=== PATIENT | female | born 1955 | race Caucasian/White ===

== ENCOUNTER 2025-06-23 05:50 | Inpatient (IN) | payer MEDICARE, OTHER, SELFPAY ==
[2025-06-02 13:45] VITALS: BMI 35.5
[2025-06-02 14:13] LABS: Hematocrit 36.0 % (37.0-47.0); Hemoglobin 11.4 g/dL (12.0-16.0); Mean Corp Hgb Conc. 31.7 g/dL (33.0-37.0); Mean Corpuscular Volume 91.8 fL (81.0-99.0); Platelet Count 218 10^3/uL (130-400); Red Cell Dist. Width 14.6 % (11.5-14.5)
[2025-06-02 14:45] LABS: ALT (SGPT) 19 U/L (0-35); AST (SGOT) 24 U/L (14-36); Albumin 4.0 g/dl (3.5-5.0); Alkaline Phosphatase 96 U/L (38-126); Blood Urea Nitrogen 15 mg/dl (7-17); Calcium 8.9 mg/dl (8.4-10.2); Carbon Dioxide 28 mmol/L (22-30); Chloride 104 mmol/L (98-107); Estimated Creatinine Clearance 51 ml/min; Glucose 137 mg/dl (70-99); Potassium 4.1 mmol/L (3.5-5.1); Sodium 137 mmol/L (135-145); Total Protein 6.5 g/dl (6.3-8.2); eGFR > 60.00
[2025-06-02 18:20] VITALS: BMI 35.5
[2025-06-03 09:39] LABS: Glycohemoglobin (HgbA1c) 6.5 % (4.0-5.9)
--- NOTE | 2025-06-07 15:12 | CM ---
CM reviewed medical records.
Demographics: lives alone, will have her sister and neighbors assist
Living situation: lives alone
Support Person Post Operatively: Sister and Neighbors
History of
VN: yes, [employer], not currently on service
SNF: History of [facility] (Patient has a bad experience and would not return)
Outpatient: Pending surgical clearance.
Has patient purchased required equipment:
PCP: confirmed
Pharmacy: [facility]
Post Operative Discharge Plan: Home with family
[2025-06-23] VITALS (15 sets, daily range): BP systolic 90–148; BP diastolic 29–62; BMI 35.5; BMI 38.5
[2025-06-23] MEDS: TYLENOL 1000 MG PO (06:38)
[2025-06-23] MEDS: NORMOSOL-R/PLASMALYTE-A 1000 IV ×2 (06:55→13:53)
--- NOTE | 2025-06-23 08:25 | W.DS.TRANS ---
DC Summary - Senior Controls Engineer
-
Discharge Instructions:
Discharge Diagnosis/Procedures R shoulder OA s/p R Reverse TSA w/ Dr Mcgill 06/23
Diet Diabetic, Carb Controlled
Additional Diets Adequate hydration, minimize opioids, and wear
TEDs stockings to prevent low blood pressure/
dizziness.
Activity As tolerated
Additional Activity Non-weightbearing right upper extremity
Driving Restrictions Not until seen by your Dr
Bathing Restrictions OK to Shower
Wound Care Leave dressing on until seen by surgeon's office
for follow-up.
Specialty Instructions Weigh Daily
Instructions:
Stand-Alone Forms: Total Shoulder Replacement D/C
Changes to Home Medications: Yes
Discharge Medications:
DC Medications w/original date entered in [employer]
allopurinol 300 mg tablet 300 mg PO HS 05/31/25
ascorbic acid (vitamin C) 250 mg tablet (Vitamin C) 250 mg PO DAILY 05/31/25
atorvastatin 40 mg tablet 40 mg PO HS 05/31/25
calcitriol 0.25 mcg capsule 0.25 mcg PO DAILY 05/31/25
cholecalciferol (vitamin D3) 25 mcg (1,000 unit) capsule (Vitamin D3) 125 mcg PO DAILY 05/31/25
dextromethorphan-guaifenesin 30 mg-600 mg tablet extended hr (Mucinex DM) 1 tab PO Q12H PRN congestion 05/31/25
dicyclomine 10 mg capsule 10 mg PO HS 05/31/25
escitalopram oxalate 10 mg tablet (Lexapro) 10 mg PO DAILY 05/31/25
ezetimibe 10 mg tablet (Zetia) 10 mg PO DAILY 05/31/25
iron polysacch cplx 150 mg iron-vit B12 25 mcg-folic acid 1 mg capsule (Poly-Iron) 1 cap PO DAILY 05/31/25
magnesium 200 mg tablet 400 mg PO MOWEFR 05/31/25
mecobalamin (vitamin B12) 1,000 mcg chewable tablet (B12 Active) 1,000 mcg PO DAILY 05/31/25
metoprolol succinate 25 mg tablet,extended release 24 hr (Toprol XL) 25 mg PO HS 05/31/25
mirabegron 50 mg tablet,extended release 24 hr (Myrbetriq) 50 mg PO HS 05/31/25
multivitamin 1 tab PO DAILY 05/31/25
Held on 06/23/25. Instructions: Resume on 07/01/25.
torsemide 10 mg tablet 10 mg PO DAILY PRN swelling/weight gain 05/31/25
mupirocin 2 % topical ointment 1 applic intranasal BID #1 tube 06/02/25
prasugrel HCl 10 mg tablet (Effient) 10 mg PO DAILY 06/06/25
Held on 06/23/25. Instructions: Resume on 06/26/25.
empagliflozin 10 mg tablet (Jardiance) 10 mg PO DAILY 06/08/25
famotidine 20 mg tablet (Pepcid) 20 mg PO HS #30 tabs 06/15/25
gabapentin 300 mg capsule 300 mg PO HS neuropathic pain/sleep #10 caps 06/15/25
ondansetron HCl 4 mg tablet 4 mg PO Q6H PRN nausea and vomiting #30 tabs 06/15/25
oxycodone 5 mg tablet 5 - 10 mg (1 - 2 x 5 mg) PO Q6H PRN moderate-severe pain #30 tabs 06/15/25
Saccharomyces boulardii 250 mg capsule (Florastor) 250 mg PO BID #1 cap 06/23/25
acetaminophen 325 mg tablet 650 mg (2 x 325 mg) PO QID #0 tabs 06/23/25
aspirin 325 mg tablet 325 mg PO DAILY Blood clot prevention/tx #1 tab 06/23/25
aspirin 81 mg tablet 81 mg PO BID Blood clot prevention/tx/heart #0 tabs 06/23/25
clindamycin HCl 300 mg capsule 300 mg PO QID Infection #20 caps 06/23/25
docusate sodium 100 mg capsule (Colace) 100 mg PO BID stool softner #1 cap 06/23/25
magnesium hydroxide 400 mg/5 mL oral suspension (Milk of Magnesia) 30 ml PO HS PRN constipation #1 mL 06/23/25
sennosides 8.6 mg tablet (Senokot) 17.2 mg (2 x 8.6 mg) PO BID laxative #2 tabs 06/23/25
Home Medication Changes
famotidine 20 mg tablet (Pepcid) 20 mg PO HS #30 tabs 06/15/25
gabapentin 300 mg capsule 300 mg PO HS neuropathic pain/sleep #10 caps 06/15/25
ondansetron HCl 4 mg tablet 4 mg PO Q6H PRN nausea and vomiting #30 tabs 06/15/25
oxycodone 5 mg tablet 5 - 10 mg (1 - 2 x 5 mg) PO Q6H PRN moderate-severe pain #30 tabs 06/15/25
Saccharomyces boulardii 250 mg capsule (Florastor) 250 mg PO BID #1 cap 06/23/25
acetaminophen 325 mg tablet 650 mg (2 x 325 mg) PO QID #0 tabs 06/23/25
aspirin 325 mg tablet 325 mg PO DAILY Blood clot prevention/tx #1 tab 06/23/25
aspirin 81 mg tablet 81 mg PO BID Blood clot prevention/tx/heart #0 tabs 06/23/25
clindamycin HCl 300 mg capsule 300 mg PO QID Infection #20 caps 06/23/25
docusate sodium 100 mg capsule (Colace) 100 mg PO BID stool softner #1 cap 06/23/25
magnesium hydroxide 400 mg/5 mL oral suspension (Milk of Magnesia) 30 ml PO HS PRN constipation #1 mL 06/23/25
sennosides 8.6 mg tablet (Senokot) 17.2 mg (2 x 8.6 mg) PO BID laxative #2 tabs 06/23/25
Pending Results: No
[2025-06-23 09:30] LABS: Glucose - Point of Care 157 mg/dl (70-99)
[2025-06-23 12:39] LABS: Glucose - Point of Care 152 mg/dl (70-99)
--- NOTE | 2025-06-23 13:41 | RESPNOTE ---
Patient ordered HS CPAP and to use own equipment. Patient states she does not have her machine, will not bring hers in and will not wear our equipment. RN aware
[2025-06-23] MEDS: DECADRON IV (13:44)
[2025-06-23] MEDS: FARXIGA 10 MG PO (13:45)
[2025-06-23] MEDS: TYLENOL 650 MG PO ×3 (13:45→21:15)
[2025-06-23] MEDS: ZETIA 10 MG PO (13:45)
[2025-06-23] MEDS: LANTUS 0.05 UNITS SC (13:49)
[2025-06-23] MEDS: NOVOLOG FLEXPEN-MODERATE RESISTANCE 1 UNITS SC (13:50)
[2025-06-23] MEDS: LEXAPRO 10 MG PO (13:56)
[2025-06-23] MEDS: MAGNESIUM OXIDE 400 MG PO (13:56)
[2025-06-23] MEDS: ANCEF 5 IV (15:46)
[2025-06-23] MEDS: ASPIRIN 325 MG PO (17:27)
[2025-06-23] MEDS: NOVOLOG FLEXPEN-MODERATE RESISTANCE 7 UNITS SC (17:33)
[2025-06-23 17:37] LABS: Glucose - Point of Care 318 mg/dl (70-99)
--- NOTE | 2025-06-23 19:51 | PTCARENOTE ---
Patient oob to chair, eating meals, voiding in bathroom with supervision. She denies pain, RUE neurovascular checks are within normal limits given she received nerve block. IVF infusing per order, NSR in 60's on monitor, right shoulder dressing
c/d/i.
[2025-06-23] MEDS: COLACE 100 MG PO (21:11)
[2025-06-23] MEDS: SENOKOT 17.2 MG PO (21:11)
[2025-06-23] MEDS: DECADRON 4 MG IV (21:23)
[2025-06-23] MEDS: BACTROBAN 2% OINTMENT 1 APPLIC NASAL (21:30)
[2025-06-23 21:37] LABS: Glucose - Point of Care 225 mg/dl (70-99)
[2025-06-23] MEDS: ROXICODONE 2.5 MG PO (21:39)
[2025-06-23] MEDS: BENTYL 10 MG PO (23:01)
[2025-06-23] MEDS: LIPITOR 40 MG PO (23:02)
[2025-06-23] MEDS: TOPROL XL 25 MG PO (23:03)
[2025-06-23] MEDS: DILAUDID 0.5 MG IV (23:04)
[2025-06-23] MEDS: ZYLOPRIM 300 MG PO (23:04)
[2025-06-24] MEDS: FLUSH (NSS) 2 FLUSH IV (01:37)
[2025-06-24] MEDS: TYLENOL 650 MG PO ×3 (01:37→13:01)
[2025-06-24] MEDS: ANCEF 5 IV (01:37)
[2025-06-24] MEDS: ROXICODONE 5 MG PO ×2 (01:58→10:45)
[2025-06-24 03:00] VITALS: BP 142/69
[2025-06-24] MEDS: TYLENOL PO (05:09)
[2025-06-24 07:00] VITALS: BP 106/64
[2025-06-24 07:36] LABS: Glucose - Point of Care 210 mg/dl (70-99)
[2025-06-24] MEDS: NOVOLOG FLEXPEN-MODERATE RESISTANCE 3 UNITS SC (08:29)
[2025-06-24] MEDS: BACTROBAN 2% OINTMENT 1 APPLIC NASAL (08:29)
[2025-06-24] MEDS: DECADRON IV ×2 (08:29→10:50)
[2025-06-24] MEDS: FARXIGA 10 MG PO (08:31)
[2025-06-24] MEDS: ZETIA 10 MG PO (08:31)
[2025-06-24] MEDS: ASPIRIN 325 MG PO (08:31)
[2025-06-24] MEDS: MAGNESIUM OXIDE PO ×2 (08:31→08:45)
[2025-06-24] MEDS: LEXAPRO 10 MG PO (08:31)
[2025-06-24] MEDS: COLACE PO ×2 (08:31→08:46)
[2025-06-24] MEDS: SENOKOT 17.2 MG PO (08:31)
[2025-06-24] MEDS: LANTUS 0.05 UNITS SC (08:32)
[2025-06-24] MEDS: ROXICODONE 2.5 MG PO (08:34)
[2025-06-24 11:00] VITALS: BP 113/53
--- NOTE | 2025-06-24 11:07 | W.PN.ORTHO ---
Today's Communication / Plan
-
Out of bed as tolerated
OK for discharge to home
Assessment
.
Dressing:
Clean, dry and intact.
Assessment:
Ms. Chavarria is a 69-year-old female postoperative day 1 after right reverse total shoulder arthroplasty
Plan
.
Activity:
Out of bed.
PT/OT
Okay for discharge to home today
Discharge Plan: Home
Subjective
.
.:
Patient resting comfortably. Complaining of minimal pain. Shoulder immobilizer applied
Vital Signs and Labs
.
Vital Signs and Labs:
Lab Results
06/02/25 13:22
06/02/25 13:22
Temp Pulse Resp BP Pulse Ox
98.8 F 68 16 106/64 95
06/24/25 07:00 06/24/25 07:00 06/24/25 07:00 06/24/25 07:00 06/24/25 07:00
Non-invasive Hgb result: 10.5
Physical Exam
-
Appropriate tenderness to palpation of surgical site
Ecchymosis about medial arm
Minimal blood on dressing
Sensation intact distally, 5/5 at elbow, wrist, and fingers
Shoulder range of motion and strength testing deferred
--- NOTE | 2025-06-24 12:27 | CM ---
Addendum entered by Prema Early 06/24/25 15:17:
Met with patient at bedside; reported that friend will provide transport home
IMM benefit explained; form signed @ 1515
Plan: DC to home; no needs
Addendum entered by Prema Early 06/24/25 14:24:
Plan: Discharge to home; no needs
Original Note:
Chart reviewed; Per Ortho note, patient out of bed as tolerated; Ok for discharge to home today; Per PT note, no skilled PT needed
[2025-06-24 12:56] LABS: Glucose - Point of Care 172 mg/dl (70-99)
[2025-06-24] MEDS: NOVOLOG FLEXPEN-MODERATE RESISTANCE SC (14:10)
[2025-06-24 15:00] VITALS: BP 111/48
== END 2025-06-24 15:30 | disposition home or self-care (01) | DRG 483 ==
LOC: 2 SOUTH 05:50
PROVIDERS: ADMITTING PHYSICIAN Specialist; FAMILY PHYSICIAN Family Medicine; REFERRING PHYSICIAN Internal Medicine Cardiovascular Disease
PROC: 0RRJ0JZ Replacement of Right Shoulder Joint with Synthetic Substitute, Open Approach (ICD-10-PCS; 2025-06-23)
DX: M19.011 Primary osteoarthritis, right shoulder (principal); M10.9 Gout, unspecified
CPT/HCPCS: 36415; 73020; 80053; 82962; 83036; 85027; 86850; 86900; 86901; 87070; 97166; 97535

== ENCOUNTER 2025-06-29 21:15 | Emergency (ER) | payer MEDICARE, OTHER, SELFPAY ==
[2025-06-29 21:19] VITALS: BP 154/65
[2025-06-29 22:00] VITALS: BMI 40.5
[2025-06-30 00:08] VITALS: BP 131/47
--- NOTE | 2025-06-30 00:20 | ED.GENMED ---
History of Present Illness
General
Chief Complaint: Musculo-Skeletal Complaint
Source: patient
Exam Limitations: none
Time Seen by Provider: 06/29/25 23:03
Nursing documentation reviewed up to this point in time: agreed with
History of Present Illness
History of Present Illness:
69-year-old female presenting to the emergency department today with concerns of right shoulder discomfort 5 days after shoulder surgery. Has had some ongoing pain also is noticed into her distal arm. Has been taking 1 oxycodone per day without
full relief of symptoms. Denies any chest pain shortness of breath denies any leg swelling.
Review of Systems
Review of Systems
Allergies reviewed?: Yes
All Other Systems: ROS reviewed and negative except as documented in HPI and ROS
Phy Exam
Physical Exam
Physical Exam:
GENERAL: Alert , in no apparent distress
EYE: pupils equal and reactive
NECK: Supple, no significant adenopathy.
ENT: o/p clr, mmm.
CARDIAC: Regular rate and rhythm .
LUNGS: Clear breath sounds bilaterally, no acute respiratory distress, no wheezes/rales/rhonchi
ABDOMEN: Soft, without focal tenderness, no r/g, no cvat
NEUROLOGICAL: Alert and oriented, no focal neuro deficits
SKIN: Surgical incision intact clean dry and intact bandage to the right shoulder no redness or warmth. Mild distal swelling, warm and dry, skin intact.
MUSCULOSKELETAL: No edema, well perfused.
PSYCH: Normal and appropriate interaction.
Course
Orders/Labs/Results
Orders:
Orders
06/30/25 00:03
CR Shoulder, Trauma - Right Urgent
Comment:
Reason For Exam: shoulder pain
Venous Doppler Upr Ext Right [US Periph Venous UPPER Ext RT] Urgent
Comment:
Reason For Exam: arm swelling, surgery 1 week ago
06/30/25 00:06
Oxycodone [Roxicodone] 5 mg PO NOW STA
06/30/25 00:16
Basic Metabolic Panel Urgent
Comment: NO K - HEMOLYZED
CBC/With Diff [Complete Blood Count/With Diff] Urgent
Abnormal Lab Results
06/30/25
00:16
RBC 3.33 L 10^6/uL
(4.20-5.40)
Hgb 9.3 L g/dL
(12.0-16.0)
Hct 29.3 L %
(37.0-47.0)
MCHC 31.7 L g/dL
(33.0-37.0)
RDW 14.7 H %
(11.5-14.5)
MPV 10.6 H fL
(7.4-10.4)
Absolute Neuts (auto) 7.5 H 10^3/uL
(1.4-6.5)
Absolute Monos (auto) 0.8 H 10^3/uL
(0.1-0.6)
Neutrophils % 77.2 H %
(42.2-75.2)
Lymphocytes % 12.2 L %
(20.5-51.1)
Sodium 134 L mmol/L
(135-145)
Carbon Dioxide 31 H mmol/L
(22-30)
BUN 20 H mg/dl
(7-17)
Glucose 129 H mg/dl
(70-99)
Calcium 8.2 L mg/dl
(8.4-10.2)
06/30/25 00:16
06/30/25 00:16
Vital Signs
Initial and Last Documented VS:
Initial Vital Signs
Temp Pulse Resp BP Pulse Ox
98.3 F 76 18 154/65 98
06/29/25 21:19 06/29/25 21:19 06/29/25 21:19 06/29/25 21:19 06/29/25 21:19
Last Documented Vital Signs
Temp Pulse Resp BP Pulse Ox
98.3 F 71 18 137/65 94
06/29/25 21:19 06/30/25 02:08 06/30/25 02:08 06/30/25 02:08 06/30/25 02:08
MDM/Problems Addressed
MDM/Problems Addressed:
69-year-old female presenting to the emergency department with ongoing right arm and shoulder pain after surgery 5 days ago to the right shoulder. Has some swelling distally. Ultrasound was performed no signs of DVT vital signs normal. No
significant white count no redness or warmth no signs of infection advised for ongoing pain treatment and close orthopedic follow-up. Return precautions given.
*Pulse Oximetry
SaO2: 98
Oxygen Mode of Delivery: Room air
Patient hypoxic: no (94)
*Critical Care Note
Total Time (30-74mins, 75-104mins- exclusive of procedures): Not Applicable
ED Attending Note
-
Portions of this chart may have been created with voice recognition software.� Occasional wrong word or��sound alike� substitutions may have occurred due to the inherent limitations of voice recognition software.
Discharge Plan
Departure
Patient Disposition: Home (Routine Discharge)
Date of Disposition: 06/30/25
Time of Disposition: 02:22
Patient with high blood pressure during this ER visit?: No
Condition: Good
Covid-19: Not Applicable
Discharge Problem:
Acute shoulder pain
Instructions: Shoulder pain - ED (DC)
Prescriptions:
No Action
multivitamin Tablet
1 tab PO DAILY
atorvastatin 40 mg Tablet
40 mg PO HS
torsemide 10 mg Tablet
10 mg PO DAILY PRN (Reason: swelling/weight gain )
Poly-Iron 150 Forte 150-25-1 mg-mcg-mg Capsule
1 cap PO DAILY
ascorbic acid (vitamin C) [Vitamin C] 250 mg Tablet
250 mg PO DAILY
allopurinol 300 mg Tablet
300 mg PO HS
metoprolol succinate [Toprol XL] 25 mg Tablet Extended Release 24 Hr
25 mg PO HS
dicyclomine 10 mg Capsule
10 mg PO HS
calcitriol 0.25 mcg Capsule
0.25 mcg PO DAILY
cholecalciferol (vitamin D3) [Vitamin D3] 25 mcg (1,000 unit) Capsule
125 mcg PO DAILY
magnesium 200 mg Tablet
400 mg PO MOWEFR
escitalopram oxalate [Lexapro] 10 mg Tablet
10 mg PO DAILY
ezetimibe [Zetia] 10 mg Tablet
10 mg PO DAILY
mirabegron [Myrbetriq] 50 mg Tablet Extended Release 24 Hr
50 mg PO HS
mecobalamin (vitamin B12) [B12 Active] 1,000 mcg Tablet,Chewable
1,000 mcg PO DAILY
Mucinex DM 30-600 mg Tablet Extended Release 12 Hr
1 tab PO Q12H PRN (Reason: congestion)
mupirocin 2 % ointment
1 applic intranasal BID Qty: 1 0RF
Patient Comments:
last dose was this am- pt started this 3 days ago
prasugrel HCl [Effient] 10 mg Tablet
10 mg PO DAILY
Jardiance 10 mg Tablet
10 mg PO DAILY
gabapentin 300 mg capsule
300 mg PO HS Qty: 10 0RF
Rx Instructions:
For post-surgical use.
oxycodone 5 mg tablet
5 - 10 mg PO Q6H PRN (Reason: moderate-severe pain) Qty: 30 0RF
Rx Instructions:
1 tab for moderate pain, 2 if severe.
Dx total joint.
ondansetron HCl 4 mg tablet
4 mg PO Q6H PRN (Reason: nausea and vomiting) Qty: 30 0RF
famotidine [Pepcid] 20 mg tablet
20 mg PO HS Qty: 30 0RF
Rx Instructions:
Take nightly while on post-surgical pain meds to reduce GI upset.
aspirin 325 mg Tablet
325 mg PO DAILY Qty: 1 0RF
Rx Instructions:
STOP WHEN EFFIENT IS RESUMED AND THEN TAKE aspirin 81mg twice a day
docusate sodium [Colace] 100 mg capsule
100 mg PO BID Qty: 1 0RF
Saccharomyces boulardii [Florastor] 250 mg capsule
250 mg PO BID Qty: 1 0RF
magnesium hydroxide [Milk of Magnesia] 400 mg/5 mL suspension
30 ml PO HS PRN (Reason: constipation) Qty: 1 0RF
Rx Instructions:
CONTINUE colace W/senokot-if no bowel movement 1 day POST-OP -add milk of mag
sennosides [Senokot] 8.6 mg tablet
17.2 mg PO BID Qty: 2 0RF
acetaminophen 325 mg Tablet
650 mg PO QID Qty: 0 0RF
aspirin 81 mg Tablet
81 mg PO BID Qty: 0 0RF
Rx Instructions:
start 06/26 -twice a day--when Effient is resumed--at that time d/c ASA 325mg
clindamycin HCl 300 mg capsule
300 mg PO QID Qty: 20 0RF
Referrals:
Tavia Newell DO [Family Provider, Family Practice]
Activity Restrictions/Additional Instructions:
You came to the emergency department today with concerns of shoulder pain. Here you have a reassuring ultrasound and x-ray. Please follow-up closely with your orthopedic doctor. Return for any worsening, new or concerning symptoms.
Interventions
Interventions:
*Risk Screen - Suicide Last Done: 06/29/25 21:19
*General Assessment Last Done: 06/30/25 00:54
*Neglect/Abuse Screening Last Done: 06/29/25 21:19
*ED COVID-19 Vaccine History Last Done: 06/30/25 00:54
*ED Influenza Vaccine History Last Done: 06/30/25 00:54
[facility] Fall Risk Assessment Tool Last Done: 06/30/25 00:58
ED-Musculoskeletal Assessment Last Done: 06/30/25 00:31
Discharge Date and Time
Print Language: WOLOF
[2025-06-30 00:41] LABS: Blood Urea Nitrogen 20 mg/dl (7-17); Calcium 8.2 mg/dl (8.4-10.2); Carbon Dioxide 31 mmol/L (22-30); Chloride 99 mmol/L (98-107); Estimated Creatinine Clearance 53 ml/min; Glucose 129 mg/dl (70-99); Sodium 134 mmol/L (135-145); eGFR > 60.00
[2025-06-30] MEDS: ROXICODONE 5 MG PO (00:51)
[2025-06-30 00:52] LABS: Hematocrit 29.3 % (37.0-47.0); Hemoglobin 9.3 g/dL (12.0-16.0); Mean Corp Hgb Conc. 31.7 g/dL (33.0-37.0); Mean Corpuscular Volume 88.0 fL (81.0-99.0); Nucleated Red Blood Cells % 0 %; Platelet Count 236 10^3/uL (130-400); Red Cell Dist. Width 14.7 % (11.5-14.5)
[2025-06-30 02:08] VITALS: BP 137/65
== END 2025-06-30 02:39 | disposition home or self-care (01) ==
LOC: EMR 21:15
PROVIDERS: Physician Assistant; EMERGENCY PHYSICIAN Student in an Organized Health Care Education/Training Program; FAMILY PHYSICIAN Family Medicine
DX: M25.511 Pain in right shoulder (principal); R22.31 Localized swelling, mass and lump, right upper limb; Z98.890 Other specified postprocedural states
CPT/HCPCS: 99284; 73030; 80048; 85025; 93971